=== PATIENT | female | born 1955 | race Caucasian/White ===

== ENCOUNTER 2020-06-16 11:50 | Emergency (ER) | payer MEDICARE, MEDICAID ==
[~2020-06-16] VITALS: Ht 154.9 cm; Wt 76.0 kg
[2020-06-16] MEDS ORDERED: LIDOcaine 5% patch TP ONE (12:45)
[2020-06-16] MEDS ORDERED: ACET-3067 PO (12:59)
[2020-06-16 13:00] LABS: CLARITY,URINE CLOUDY (Clear); COLOR,URINE YELLOW (Yellow); GLUCOSE, URINE NEGATIVE (Neg); KETONES,URINE NEGATIVE (Neg); LEUKOCYTE ESTERASE ,URINE SMALL (Neg); NITRITES, URINE NEGATIVE (Neg); OCCULT BLOOD,URINE NEGATIVE (Neg); PROTEIN,URINE NEGATIVE (Neg); UROBILINOGEN,URINE 0.2 E.U/dL (0.2-1.0)
[2020-06-16 13:05] LABS: UA COLLECTION TYPE CLN CATCH MIDSTREAM
[2020-06-16 13:07] LABS: BACTERIA,URINE 3+ /HPF (Neg); MUCUS STRANDS NONE SEEN /LPF (Neg); RBC,URINE NONE SEEN /HPF (0-2); SQUAMOUS EPITHELIAL CELL,UR MODERATE /LPF (FEW); WBC CLUMPS,URINE MODERATE /HPF (NEGATIVE); WBC,URINE 20-30 /HPF (0-4)
[2020-06-16 13:13] VITALS: BP 130/57
== END 2020-06-16 13:19 | disposition home or self-care (01) ==
LOC: ER 11:51
DX: M54.5 Low back pain (principal); G89.29 Other chronic pain; Z98.890 Other specified postprocedural states; Z79.899 Other long term (current) drug therapy
CPT/HCPCS: 81001; 87088; 99283

== ENCOUNTER 2022-11-07 11:19 | Emergency (ER) | payer MEDICARE, MEDICAID ==
[~2022-11-07] VITALS: Ht 154.9 cm; Wt 81.8 kg
[2022-11-07 11:30] VITALS: BP 166/55
[2022-11-07] MEDS ORDERED: HYDROcodone/acetaminophen 10/325mg tab PO ONE (13:15)
[2022-11-07] MEDS ORDERED: HYDR-3972 PO (13:57)
== END 2022-11-07 14:15 | disposition home or self-care (01) ==
LOC: ER 11:20
DX: S42.302A Unspecified fracture of shaft of humerus, left arm, initial encounter for closed fracture (principal); G89.29 Other chronic pain; M54.50 Low back pain, unspecified; Z88.6 Allergy status to analgesic agent; W19.XXXA Unspecified fall, initial encounter; Y93.89 Activity, other specified; Y92.89 Other specified places as the place of occurrence of the external cause; Y99.8 Other external cause status
CPT/HCPCS: 29105; 73030; 73060; 99284; L3650

== ENCOUNTER 2022-11-25 16:25 | Emergency (ER) | payer MEDICARE, MEDICAID ==
[~2022-11-25] VITALS: Ht 154.9 cm; Wt 85.0 kg
[2022-11-25 20:26] VITALS: BP 133/75
[2022-11-25] MEDS ORDERED: HYDROcodone/acetaminophen 10/325mg tab PO ONE (21:05)
[2022-11-25] MEDS ORDERED: proCHLORperazine 10 MG/2 ml inj IM ONE (21:05)
--- NOTE | 2022-11-25 21:13 | NUR ---
Agree with assessment of PROPERTY COORDINATOR.
[2022-11-25] MEDS ORDERED: HYDR-3972 PO (21:32)
[2022-11-25] MEDS ORDERED: PROC-8 PO (21:32)
== END 2022-11-25 21:59 | disposition home or self-care (01) ==
LOC: ER 16:26
DX: S42.302D Unspecified fracture of shaft of humerus, left arm, subsequent encounter for fracture with routine healing (principal); X58.XXXD Exposure to other specified factors, subsequent encounter; R51.9 Headache, unspecified; Z88.0 Allergy status to penicillin
CPT/HCPCS: 96372; 99283; J0780

== ENCOUNTER 2022-12-29 08:27 | Inpatient (IN) | payer MEDICARE, MEDICAID ==
[2022-12-25 12:17] LABS: BASOPHILS # (AUTO) 0.1 X10'3 (0-0.2); BASOPHILS % (AUTO) 0.9 % (0-1); EOSINOPHILS # (AUTO) 0.2 X10'3 (0-0.9); EOSINOPHILS % (AUTO) 2.2 % (0-6); LYMPHOCYTES # (AUTO) 1.4 X10'3 (1.1-4.8); LYMPHOCYTES % (AUTO) 18.4 % (21-51); MEAN CORPUSCULAR HEMOGLOBIN 30.1 PG (27.0-31.0); MEAN CORPUSCULAR HGB CONC 33.8 g/dL (33.0-36.5); MEAN CORPUSCULAR VOLUME 89.2 FL (78-98); MEAN PLATELET VOLUME 8.8 FL (7.4-10.4); MONOCYTES # (AUTO) 0.5 X10'3 (0-0.9); MONOCYTES % (AUTO) 6.5 % (2-12); NEUTROPHILS # (AUTO) 5.7 X10'3 (1.8-7.7); PRE OP HEMATOCRIT 42.3 % (35.0-45.0); PRE OP HEMOGLOBIN 14.3 g/dL (12.0-16.0); PRE OP PLATELET COUNT 211 X10'3 (140-440); RED BLOOD COUNT 4.74 X10'6 (4.20-5.60); RED CELL DISTRIBUTION WIDTH 14.3 % (11.5-14.5)
[2022-12-25 13:02] LABS: ALBUMIN 3.8 G/DL (3.4-5.0); ALKALINE PHOSPHATASE 93 IU/L (46-116); BLOOD UREA NITROGEN 14 MG/DL (7-18); BUN/CREATININE RATIO 14.6 (10.0-20.0); CALCIUM 9.7 MG/DL (8.5-10.1); CHLORIDE 104 MMOL/L (99-107); CREATININE 0.96 MG/DL (0.40-0.90); PRE OP ALT 23 U/L (30-65); PRE OP ANION GAP 7 (8-16); PRE OP AST 14 U/L (10-37); PRE OP BILIRUB, TOTAL 0.3 MG/DL (0.0-1.0); PRE OP GLUCOSE 120 MG/DL (70-104); PRE OP POTASSIUM 4.4 MMOL/L (3.4-5.1); PRE OP SODIUM 141 MMOL/L (135-145); TOTAL CARBON DIOXIDE 29.6 MMOL/L (24-32); TOTAL PROTEIN 7.5 G/DL (6.4-8.2); eGFR 58 ML/MIN
[2022-12-25 13:28] LABS: HEMOGLOBIN A1C 6.2 % (4.5-6.2)
[2022-12-29] VITALS (22 sets, daily range): BP systolic 93–153; BP diastolic 49–88
[~2022-12-29] VITALS: Ht 154.9 cm; Wt 74.8 kg
[~2022-12-29 08:27] MED LIST: BENZ1TAB78 PO; HYDR-3972 PO; LURA120T PO; QUET200T31 PO; cefazolin 2gm/D5W 100mL 100 ML IV ONE; famotidine 20mg tablet PO ONE; ringers solution, lacted 1,000 ML IV SCH; tranexamic acid 650mg tablet PO ONE; vancomycin 1,500 MG in NS 300ml IV soln IV ONE
--- NOTE | 2022-12-29 08:35 | NUR ---
PT ARRIVED FOR [facility]. PT COMPLETED 5 DAYS OF SHOWERS WITH HIBICLENS BUT DID NOT USE THE OINTMENT. PT DID NOT COMPLETE ANY EDUCATION THAT WAS PROVIDED. RADIAL PULSES STRONG AND MARKED. COLOR AND SENSATION WERE W/N/L. 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 Addendum: 12/29/22 at 1007 by Daisha Tesfaye RN Amended: Links added.
[2022-12-29] MEDS ORDERED: morphine 2 MG/ML inj. syringe IV PRN (11:30)
[2022-12-29] MEDS ORDERED: morphine 4 MG/ML inj SYRINge IV PRN (11:30)
[2022-12-29] MEDS ORDERED: proCHLORperazine 10 MG/2 ml inj IV PRN (11:30)
[2022-12-29] MEDS ORDERED: meperidine/PF 25mg/ml syringe IV PRN ×3 (11:30)
[2022-12-29] MEDS ORDERED: ondansetron/PF 4mg/2ml inj IV PRN ×2 (11:30→14:55)
[2022-12-29] MEDS ORDERED: ringers solution, lacted 1,000 ML IV SCH (11:30)
[2022-12-29] MEDS ORDERED: MIDAZolam 1 MG/ML 5ML VIAL ONE (12:34)
[2022-12-29] MEDS ORDERED: fentaNYL/PF 50MCG/1 ML 2ML syringe ONE (12:34)
[2022-12-29] MEDS ORDERED: ROPIVAcaine 0.5% (5mg/ml) 30ml vial ONE (12:35)
[2022-12-29] MEDS ORDERED: ondansetron/PF 4mg/2ml inj ONE (13:20)
[2022-12-29] MEDS ORDERED: propofol inj 20 ML IV ONE (13:20)
[2022-12-29] MEDS ORDERED: rocuronium 10mg/ml inj IV ONE (13:24)
[2022-12-29] MEDS ORDERED: ROPIVAcaine 0.2%/PF PUMP/bolus 545 ML INTERSCALE SCH (14:00)
[2022-12-29] MEDS ORDERED: ROPIVAcaine 0.2%/PF PUMP/bolus 545 ML POPLITEAL SCH (14:00)
[2022-12-29] MEDS ORDERED: ROPIVAcaine 0.2% (10 MG/5 ML) BOLUS INJECTION INTERSCALE PRN (14:00)
[2022-12-29] MEDS ORDERED: ROPIVAcaine 0.2% (10 MG/5 ML) BOLUS INJECTION POPLITEAL PRN (14:00)
[2022-12-29] MEDS ORDERED: BUPIVAcaine/PF 2.5mg/ml (0.25%) 10ml vial IJ ONE (14:43)
[2022-12-29] MEDS ORDERED: neostigmine methylsulfate 1 MG/ML 10ml vial ONE (14:46)
[2022-12-29] MEDS ORDERED: HYDROmorphone inj. 0.5 MG/0.5 ML DISP.SYRIN IV PRN (14:55)
[2022-12-29] MEDS ORDERED: HYDROmorphone 1 mg/ml syringe IV PRN (14:55)
[2022-12-29] MEDS ORDERED: HYDROcodone/acetaminophen 10/325mg tab PO PRN ×3 (14:55)
[2022-12-29] MEDS ORDERED: acetaminophen 325mg tablet PO PRN (14:55)
[2022-12-29] MEDS ORDERED: bisacodyl 10mg suppository rectal RC PRN (14:55)
[2022-12-29] MEDS ORDERED: magnesium hydroxide 30ml (MOM) UD suspension PO PRN (14:55)
[2022-12-29] MEDS ORDERED: naloxone 0.4 mg/ml inj IV PRN (14:55)
[2022-12-29] MEDS ORDERED: oxyCODONE IR 5mg (immed. release) tablet PO PRN ×2 (14:55)
[2022-12-29] MEDS ORDERED: diphenhydrAMINE 25mg capsule PO PRN ×2 (14:55)
--- NOTE | 2022-12-29 14:55 | NUR ---
Received from OR via BED, accompanied by Anesthesiologist, DR DELGADO-report given by Anesthesiologist. PATIENT WAKING UP, NO S/S OF PAIN, V/S WNL, SCD ON, 20G TO pablo TALBOT to shoulder-CDI with POWDER PACK AND SLING IN PLACE, ON-Q CATHETER, NEURO INTACT
--- NOTE | 2022-12-29 16:37 | NUR ---
Patient in room PAS IN 900. I have received report from Giselle HENNESSY and had the opportunity to ask questions
[2022-12-29] MEDS: ceFAZolin/D5W- 1GM premix 50 ML IV SCH (16:50)
--- NOTE | 2022-12-29 16:50 | NUR ---
PT DOING WELL, VSS, DENIES PAIN, ON-Q ATTACHED AND SET AT 2ML/HR, FED LUNCH-TOLERATED WELL, POST ABX STARTED, NO CHANGES IN ASSESSMENT, REPORT CALLED TO VINNY WALTON-ALL QUESTIONS ANSWERED, TAKEN WITH ALL BELONGINGS TO ROOM 360A, BED LOW AND LOCKED, CALL LIGHT IN REACH, PRIMARY NURSE IN TO ACCEPT PT.
[2022-12-29] MEDS ORDERED: lurasidone 60mg tablet PO SCH (17:00)
--- NOTE | 2022-12-29 18:36 | NUR ---
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
--- NOTE | 2022-12-29 18:55 | NUR ---
Problems reprioritized. Patient report given, questions answered & plan of care reviewed with Candace HENNESSY.
[2022-12-29] MEDS: benztropine 1mg tablet PO SCH (19:48)
[2022-12-29] MEDS: acetaminophen 325mg tablet PO SCH (19:50)
[2022-12-29] MEDS ORDERED: vancomycin/NS 1 GM ADD-VANTAGE 250 ML IV SCH (20:00)
[2022-12-29] MEDS ORDERED: sennosides 8.6mg tablet PO SCH (21:00)
[2022-12-29] MEDS ORDERED: quetiapine 100mg tablet PO SCH (21:00)
[2022-12-29] MEDS: potassium cl 20mEq in 1/2 NS 1,000 ML IV SCH ×2 (21:47→22:55)
[2022-12-30] VITALS: BP 98/57
[2022-12-30] MEDS: ceFAZolin/D5W- 1GM premix 50 ML IV SCH (00:36)
[2022-12-30 02:00] VITALS: BP 105/59
[2022-12-30] MEDS: acetaminophen 325mg tablet PO SCH ×3 (02:00→14:30)
[2022-12-30 04:00] VITALS: BP 101/54
--- NOTE | 2022-12-30 06:27 | NUR ---
Patient in room [facility]. I have received report from Candace HENENSSY and had the opportunity to ask questions and assume patient care.
[2022-12-30 06:59] LABS: BASOPHILS % (AUTO) 0.2 % (0-1); EOSINOPHILS % (AUTO) 0 % (0-6); HEMATOCRIT 36.6 % (35.0-45.0); HEMOGLOBIN 12.2 g/dl (12.0-16.0); LYMPHOCYTES # (AUTO) 0.8 X10'3 (1.1-4.8); LYMPHOCYTES % (AUTO) 6.1 % (21-51); MEAN CORPUSCULAR HEMOGLOBIN 29.7 PG (27.0-31.0); MEAN CORPUSCULAR HGB CONC 33.3 g/dL (33.0-36.5); MEAN CORPUSCULAR VOLUME 89.1 FL (78-98); MEAN PLATELET VOLUME 9.6 FL (7.4-10.4); MONOCYTES # (AUTO) 0.8 X10'3 (0-0.9); NEUTROPHILS # (AUTO) 11.9 X10'3 (1.8-7.7); NEUTROPHILS % (AUTO) 87.7 % (42-75); PLATELET COUNT 203 X10'3 (140-440); RED BLOOD COUNT 4.11 X10'6 (4.20-5.60); RED CELL DISTRIBUTION WIDTH 13.8 % (11.5-14.5); WHITE BLOOD COUNT 13.5 X10'3 (4.5-11.0)
[2022-12-30 07:08] LABS: ANION GAP 9 (8-16); CHLORIDE 104 MMOL/L (99-107); POTASSIUM 4.8 MMOL/L (3.5-5.1); SODIUM 136 MMOL/L (135-145); TOTAL CARBON DIOXIDE 23.2 MMOL/L (24-32)
[2022-12-30 08:00] VITALS: BP 101/56
[2022-12-30] MEDS ORDERED: aspirin 325mg tablet PO SCH (08:30)
[2022-12-30] MEDS: benztropine 1mg tablet PO SCH (08:45)
[2022-12-30] MEDS: potassium cl 20mEq in 1/2 NS 1,000 ML IV SCH ×2 (09:14→14:55)
--- NOTE | 2022-12-30 09:43 | NUR ---
Call placed to Dr. Gilbert [phone]. Notified that patient reports she has an allergy to aspirin she states "it makes me swell up." Received telephone order to d/c aspirin. Noted and carried out
--- NOTE | 2022-12-30 11:00 | NUR ---
Received verbal orders from Dr. Gilbert to discharge patient home
[2022-12-30 12:00] VITALS: BP 97/51
[2022-12-30 13:49] VITALS: BP 114/50
--- NOTE | 2022-12-30 15:00 | NUR ---
I have reviewed and agree with interventions, assessments and documentation by Alicia Inman LVN.
--- NOTE | 2022-12-30 15:48 | NUR ---
Patient is stable and appropriate for discharge. PIV removed, cannula intact-patient tolerated well. 1 per assist with dressing provided. All belongings accounted for. Patient's caregiver is visiting her mother in the hospital and reported that they would be back to review discharge paperwork, call placed to caregiver Ursula [phone], she stated that they are still here and will be back to review discharge paperwork. Awaiting her return. Addendum: 12/30/22 at 1625 by Alicia Dent LVN Discharge paperwork reviewed and education provided re limitations, incision care, and OnQ pump. Patient and caregiver Ursula state understanding. Patient signed paperwork, ice packs sent with patient. Patient assisted out of facility via w/c by auxillary staff accompanied by her caregiver Ursula.
[2022-12-31] MEDS ORDERED: acetaminophen 325mg tablet PO PRN (14:55)
== END 2022-12-30 16:20 | disposition home or self-care (01) | DRG 483 ==
LOC: PAS IN 08:27 → SUR 3N 17:26
PROVIDERS: ADMIT Orthopaedic Surgery; ATTEND Orthopaedic Surgery
PROC: 0LS40ZZ Reposition Left Upper Arm Tendon, Open Approach (ICD-10-PCS; 2022-12-29)
PROC: 3E0T3BZ Introduction of Anesthetic Agent into Peripheral Nerves and Plexi, Percutaneous Approach (ICD-10-PCS; 2022-12-29)
PROC: 3E0T33Z Introduction of Anti-inflammatory into Peripheral Nerves and Plexi, Percutaneous Approach (ICD-10-PCS; 2022-12-29)
PROC: 0RRK00Z Replacement of Left Shoulder Joint with Reverse Ball and Socket Synthetic Substitute, Open Approach (ICD-10-PCS; principal; 2022-12-29 12:27)
DX: S42.242A 4-part fracture of surgical neck of left humerus, initial encounter for closed fracture (principal); E11.69 Type 2 diabetes mellitus with other specified complication; E66.9 Obesity, unspecified; Z79.899 Other long term (current) drug therapy; Z68.31 Body mass index [BMI] 31.0-31.9, adult
CPT/HCPCS: 36415; 80051; 80053; 82948; 83036; 85025; 87081; 97110; 97161; 97530; A4615; A4618; A7000; C1776; G0378; J0690; J2250; J2405; J2704; J2710; J2795; J3010; J3370; J3480; J3490; J7120

== ENCOUNTER 2024-08-24 14:53 | Emergency (ER) | payer MEDICARE, MEDICAID ==
[~2024-08-24] VITALS: Ht 154.9 cm; Wt 86.4 kg
[~2024-08-24 14:53] MED LIST changes: -cefazolin 2gm/D5W 100mL 100 ML IV ONE; -famotidine 20mg tablet PO ONE; -ringers solution, lacted 1,000 ML IV SCH; -tranexamic acid 650mg tablet PO ONE; -vancomycin 1,500 MG in NS 300ml IV soln IV ONE
[2024-08-24 15:09] VITALS: TEMP 97.8
[2024-08-24 16:23] VITALS: BP 167/80; PULSE 73; O2SAT 98
[2024-08-24 16:34] LABS: BASOPHILS # (AUTO) 0.1 X10'3 (0-0.2); BASOPHILS % (AUTO) 0.8 % (0-1); EOSINOPHILS # (AUTO) 0.2 X10'3 (0-0.9); EOSINOPHILS % (AUTO) 2.2 % (0-6); HEMATOCRIT 41.8 % (35.0-45.0); HEMOGLOBIN 14.4 g/dl (12.0-16.0); LYMPHOCYTES # (AUTO) 1.8 X10'3 (1.1-4.8); LYMPHOCYTES % (AUTO) 23.6 % (21-51); MEAN CORPUSCULAR HEMOGLOBIN 31.2 PG (27.0-31.0); MEAN CORPUSCULAR HGB CONC 34.6 g/dL (33.0-36.5); MEAN CORPUSCULAR VOLUME 90.2 FL (78-98); MEAN PLATELET VOLUME 8.6 FL (7.4-10.4); MONOCYTES # (AUTO) 0.5 X10'3 (0-0.9); MONOCYTES % (AUTO) 6.6 % (2-12); NEUTROPHILS % (AUTO) 66.8 % (42-75); PLATELET COUNT 202 X10'3 (140-440); RED BLOOD COUNT 4.63 X10'6 (4.20-5.60); RED CELL DISTRIBUTION WIDTH 14.5 % (11.5-14.5); WHITE BLOOD COUNT 7.5 X10'3 (4.5-11.0)
[2024-08-24 16:51] LABS: ALANINE AMINOTRANSFERASE 28 U/L (12-78); ALBUMIN 3.7 G/DL (3.4-5.0); ALBUMIN/GLOBULIN RATIO 0.9 (1.1-1.5); ALKALINE PHOSPHATASE 116 IU/L (46-116); ANION GAP 9 (8-16); ASPARTATE AMINO TRANSFERASE 12 U/L (10-37); BILIRUBIN,TOTAL 0.4 MG/DL (0.1-1.0); BLOOD UREA NITROGEN 13 MG/DL (7-18); BUN/CREATININE RATIO 12.5 (10.0-20.0); CALCIUM 9.4 MG/DL (8.5-10.1); CHLORIDE 103 MMOL/L (99-107); CREATININE 1.04 MG/DL (0.40-0.90); GLUCOSE 289 MG/DL (70-104); POTASSIUM 4.1 MMOL/L (3.5-5.1); SODIUM 138 MMOL/L (135-145); TOTAL CARBON DIOXIDE 25.8 MMOL/L (24-32); TOTAL PROTEIN 7.7 G/DL (6.4-8.2); eCRCL 39 ML/MIN; eGFR 53 ML/MIN
[2024-08-24 16:58] LABS: PRO BRAIN NATRIURETIC PEPTIDE 241 PG/ML (0-125)
[2024-08-24 19:08] VITALS: RESP 18
== END 2024-08-24 19:11 | disposition home or self-care (01) ==
LOC: ER 14:54
DX: R07.89 Other chest pain (principal); G89.29 Other chronic pain; M54.9 Dorsalgia, unspecified; Z88.6 Allergy status to analgesic agent; Z88.0 Allergy status to penicillin
CPT/HCPCS: 36415; 71045; 80053; 83880; 84484; 85025; 93005; 99285